=== PATIENT | female | born 1990 | race Caucasian/White ===

== ENCOUNTER 2019-02-19 16:01 | Emergency (ER) | payer MEDICAID, SELFPAY ==
[2019-02-19 16:02] VITALS: BP 141/75; PULSE 88; RESP 16; TEMP 36.4; O2SAT 98; BMI 32.4
--- NOTE | 2019-02-19 16:17 | US_ITS ---
STUDY: ABDOMINAL ULTRASOUND - RIGHT UPPER QUADRANT REASON FOR VISIT: Female, 29 years old. Elevated LFTs TECHNIQUE: Ultrasound evaluation of the right upper quadrant was performed with real-time and static alvarez-scale imaging. TECHNICAL QUALITY: Limited. Examination limited by bowel gas. COMPARISON: None. FINDINGS: Liver: The liver measures 19.5 cm. There is normal echogenicity of the liver. The bile ducts are within normal limits. There is hepatic color flow. The direction of portal flow is hepatopetal. There is no demonstrated mass lesion. Gallbladder: Normal distended gallbladder. The gallbladder wall measures 2 mm. There is a negative sonographic Bailey's sign. There is no pericholecystic fluid. There are no gallstones. Common Bile Duct (C.B.D.): The common bile duct measures 2 mm. Pancreas: Visualized pancreas is sonographically normal Right Kidney: Normal size of the right kidney. The right kidney measures 10.1 x 5.0 x 4.6 cm. Normal renal cortex. The right cortex measures 1.3 cm. There is no demonstrated renal mass or cyst. There is no right hydronephrosis. US/Gallbladder IMPRESSION: No suspicious sonographic findings Electronically Signed: Gene Worthington MD at 17:48 EDT , Service support ,
[2019-02-19] MEDS: 0.9% Normal Saline 1,000 ML 1000 ML IV (16:35)
[2019-02-19] MEDS: Ondansetron 4 MG/2 ML Vial IV (16:35)
[2019-02-19] MEDS: Ketorolac 30 MG/ML Syringe 15 MG IV (16:36)
--- NOTE | 2019-02-19 16:36 | ED.DCSUM_ITS ---
History of Present Illness Chief Complaint: Abd Pain Narrative: Patient presenting for evaluation secondary to abdominal pain. Patient reports that this morning she woke up with right upper quadrant abdominal pain. Is has been a continuous waxing and waning type pain not associated with any sort of fevers. Patient states that she has been having some loose stools over the course of the last couple of days. She endorses some nausea and anorexia but no vomiting. She is never had any prior similar episodes in the past. Pain is worse with palpation. Patient has a history of a tubal ligation in the past, no other abdominal surgeries. She denies any urinary signs or symptoms. Review of systems otherwise negative. Past Medical History - Allergies and Home Meds Allergies/Adverse Reactions: Allergies tramadol Adverse Reaction (Verified 02/19/19 16:05) Hives Primary Care Physician: Osiel Plummer MD [STAFF PHYSICIAN] - 3-5 Days Care Physician,No Primary [Primary Care Provider] - Review of Systems All systems negative except as indicated General: Denies: Fever Gastrointestinal: Reports: Abdominal pain, Nausea, Diarrhea. Denies: Vomiting Genitourinary: Denies: Dysuria, Hematuria, Frequency Physical Exam Vital Signs/Narrative: Vital Signs Temp Pulse Resp BP Pulse Ox 02/19/19 16:02 97.5 F L 88 16 141/75 H 98 General: Well nourished, Well developed, No Acute Distress Head: Normocephalic, Atraumatic Eyes: Perrl, EOMI. Negative for: Scleral icterus ENT: Moist mucous membranes, No rhinorrhea Neck: Supple, Nontender Cardiovascular: Regular rate, Regular rhythm, No murmurs Respiratory: No distress, CTA bilaterally, Chest nontender Abdomen: Soft, Nondistended, Tender - Right upper quadrant, Guarding, Bailey's sign Extremities: Nontender, No edema Skin: Normal color, No rash Neurological: Alert, Oriented x3, Cranial nerves II-XII grossly intact, Normal Strength, Normal Sensation Psychological: Normal affect, Normal Mood Diagnostic/Tx/Re-eval - Medical Decision Making Patient presented secondary to right upper quadrant abdominal pain. I was concerned for the possibility of gallbladder pathology. CBC CMP lipase and urinalysis were unremarkable. Right upper quadrant ultrasound was negative. Patient was initially given Toradol Zofran and liter of fluids, she had some improvement of her pain, but continues to have some pain. Patient was given a [place] in the emergency department. She will be sent home with a short course of Naprosyn for pain control, and strict return instructions. Patient was given primary care from the follow-up list. Patient was discharged in improved condition. Disposition: Home ED Disposition - Plan for ED Patient: Disposition: Home or Assisted Living Diagnosis: Right upper quadrant abdominal pain Instructions: ED Abdominal Pain Unkn Cause Prescriptions: Naproxen [Naprosyn] 500 mg PO BID PRN #20 tab Referrals: Care Physician,No Primary [Primary Care Provider] - Osiel Plummer MD [STAFF PHYSICIAN] - 3-5 Days
[2019-02-19 16:48] LABS: Absolute Lymphocyte Count 3.12 X10^3/ul (0.83-4.51); Absolute Neutrophil Count 5.5 X10^3/uL (2.0-7.7); Basophil# 0.03 X10^3/uL; Basophil% 0.3 % (0-1); Eosinophil# 0.21 X10^3/uL; Eosinophils% 2.2 % (0-5); Hematocrit 39.6 % (37-47); Hemoglobin 13.8 g/dl (12.0-15.0); Lymphocyte # 3.12 X10^3/ul (4.0); Lymphocyte % 32.6 % (19-41); Mean Corp Hgb Conc 34.8 g/gl (32-36); Mean Corpuscular Hgb 28.8 pg (27.0-32.0); Mean Corpuscular Volume 82.7 fL (81-99); Mean Platelet Vol. 10.4 fl (6.2-12.0); Monocyte# 0.73 X10^3/uL; Monocyte% 7.6 % (0-10); Neutrophil # 5.45 X10^3/uL (2.7-7.7); Neutrophil % 57.1 % (47-70); Platelet Count 160 K/mm3 (150-450); RBC Distribution Width CV 12.3 % (11.6-14.6); RBC Distribution Width SD 37.2 fl (35.1-43.9); Red Blood Count 4.79 M/mm3 (4.2-5.4); White Blood Count 9.6 K/mm3 (4.4-11.0)
[2019-02-19 16:48] LABS: Bacteria 0 SEEN /hpf (None Seen); Mucous, Urine 0 SEEN /hpf (<or=2+)
[2019-02-19 17:00] LABS: POSITIVE COUNT NO; POSITIVE DIFFERENTIAL NO; POSITIVE MORPHOLOGY NO
[2019-02-19 17:01] LABS: Internal QC Validated? YES +Cl - CLEAR BKGD; Pregnancy, Urine Negative Negative
[2019-02-19 17:06] LABS: Color, Urine Straw (Yellow); Glucose, Dipstick Normal (Normal); Ketone-Dipstick Negative (Negative); Leukocyte Esterase-Dipstick 25 /ul (Negative); Nitrite-Dipstick Negative (Negative); Occult Blood-Urine Negative /ul (Negative); Protein-Dipstick Negative (Negative); Specific Gravity, Urine 1.005 (1.002-1.030); Urine Bilirubin Dipstick Negative (Negative); Urine Clarity Clear (Clear); Urine Urobilinogen Normal (Normal)
[2019-02-19 17:09] LABS: Red Blood Cells-Urine 0 SEEN /hpf (0-5); Squamous Epithelial Cells - UA 0-5 SEEN /hpf (5-10); White Blood Cells 0-5 SEEN /hpf (0-5)
[2019-02-19 17:10] LABS: AST(SGOT) 22 U/L (15-37); Alanine Aminotransfer ALT/SGPT 29 U/L (13-56); Albumin, Serum 3.8 g/dL (3.2-5.0); Alkaline Phosphatase 89 U/L (45-117); Anion Gap 8 (5-15); BUN 7 mg/dL (7-18); BUN/Creat Ratio 8.8 RATIO (10-20); Calcium,Total 8.7 mg/dL (8.5-10.1); Chloride 105 mmol/L (98-107); Creatinine, Serum 0.79 mg/dL (0.55-1.02); EST Glomerular Filtration Rate 90 mL/min (>60); Est Glom Filt Rate - Afr Amer 109 mL/min (>60); Estimated Creatinine Clearance 85.35 ml/min; Globulin 3.7 g/dL (2.2-4.2); Glucose 82 mg/dL (74-106); Lipase 151 U/L (73-393); Potassium 3.6 mmol/L (3.5-5.1); Protein, Total 7.5 g/dL (6.4-8.2); Sodium Level 138 mmol/L (136-145)
[2019-02-19] MEDS: HYDROcodone Bitartrate/Apap 5/325 Tablet PO (18:18)
[2019-02-19 18:20] VITALS: BP 124/87; PULSE 79; RESP 19; O2SAT 99
== END 2019-02-19 18:22 | disposition home or self-care (01) ==
PROVIDERS: Emergency Provider Emergency Medicine
DX: R10.11 Right upper quadrant pain (principal)
CPT/HCPCS: 76705; 80053; 81001; 81025; 83690; 85025; 96361; 96374; 96375; 99284; J7030; A4216; J2405

== ENCOUNTER → 2020-08-13 13:09 | Outpatient (CLI) | payer MEDICAID, SELFPAY ==
[2020-08-13 11:28] VITALS: BMI 33.0
== END ==
PROVIDERS: Visit Provider Physician Assistant
DX: Z20.828 Contact with and (suspected) exposure to other viral communicable diseases (principal)
CPT/HCPCS: 87635; U0003

== ENCOUNTER → 2020-09-03 18:37 | Outpatient (CLI) | payer MEDICAID, SELFPAY ==
[2020-09-03 15:12] VITALS: BMI 33.0
== END ==
PROVIDERS: Referring Provider Physician Assistant; Visit Provider Physician Assistant
DX: Z03.818 Encounter for observation for suspected exposure to other biological agents ruled out (principal)
CPT/HCPCS: 87635; U0003

== ENCOUNTER 2021-06-01 10:04 | Emergency (ER) | payer MEDICAID, SELFPAY ==
[2021-06-01 10:04] VITALS: BP 149/88; PULSE 79; RESP 18; TEMP 36.4; O2SAT 94; BMI 34.7
[2021-06-01 10:05] VITALS: BP 149/88; PULSE 79; RESP 18; TEMP 36.4; O2SAT 94
--- NOTE | 2021-06-01 10:13 | EKG12_ITS ---
Test Reason : Blood Pressure : / mmHG Vent. Rate : 074 BPM Atrial Rate : 074 BPM P-R Int : 166 ms QRS Dur : 080 ms QT Int : 374 ms P-R-T Axes : 053 064 044 degrees QTc Int : 415 ms Normal sinus rhythm Normal ECG Confirmed by FAISAL DURÁN, KATHLEEN ([id number]), video news editor DONNA GUY ([id number]) on 06/03/2021 10:15:56 AM Referred By: [facility] Confirmed By:KATHLEEN MALONE MD
--- NOTE | 2021-06-01 10:15 | ED.VIS.DYS ---
HPI History of Present Illness Chief Complaint: Cold Sx Informant: patient Narrative Narrative: 31-year-old female presenting with cough, shortness of breath. She states this started 3 days ago. She does have sick contacts at home. She is not vaccinated for Covid. She did have Covid last summer. She denies fever. Denies vomiting or diarrhea. Denies abdominal pain. She complains of chest pain with cough. PE Risk Factors: Negative for Cancer, OCP + Smoking + > 35, Prior DVT or PE, Recent immobilization, Recent surgery and Recent travel Prior similar symptoms: Yes Recent Illness/Hospitalization: No PFSH PFSH Medical History (Updated 06/01/21 @ 11:[address] Shayna Rashid MD) Depressed Home Medications [id number] 1 tab PO Q4H PRN PRN 02/19/19 [History Last Taken Unknown] naproxen 500 mg PO BID PRN #20 tab 02/19/19 [Rx Last Taken Unknown] benzonatate [Tessalon Perles] 100 mg PO BID PRN #20 cap 06/01/21 [Rx Last Taken Unknown] Allergy/AdvReac Type Severity Reaction Status Date / Time amoxicillin Allergy Rash Verified 06/01/21 10:06 Penicillins Allergy Rash Verified 06/01/21 10:06 tramadol AdvReac Hives Verified 09/03/20 15:13 Social History (Updated 09/03/20 @ 16:07 by Sabino COTTON, PA) Smoking Status: Current every day smoker tobacco type: e-cigarettes ROS ROS ED Constitutional Constitutional ED: Denies fever(s) Eyes Eyes: Denies change in vision ENT ENT ED: Denies rhinorrhea or sore throat Cardiovascular Cardiovascular: Reports other Details: chest pain with coughing ; Denies palpitations Respiratory/Chest Respiratory/Chest: Reports cough and dyspnea; Denies sputum Gastrointestinal Gastrointestinal: Denies abdominal pain, diarrhea, nausea or vomiting Genitourinary Genitourinary ED: Denies dysuria Musculoskeletal Musculoskeletal: Denies myalgias Integumentary Denies rash Neurologic Neurologic: Reports headache(s) Psychiatric Psychiatric: Denies suicidal thoughts EXAM Physical Exam Const Vital Signs: 06/01/21 10:04 06/01/21 10:05 06/01/21 10:11 Temperature 97.6 F L 97.6 F L Temperature Source Temporal Temporal Pulse Rate 79 79 Respiratory Rate 18 18 Respiratory Effort Short of Breath Respiratory Depth Normal Respiratory Pattern Normal Blood Pressure 149/88 H 149/88 H Blood Pressure Mean 108 108 Pulse Ox 94 94 Oxygen Delivery Method Room Air Room Air 06/01/21 10:31 Temperature 97.6 F L Temperature Source Temporal Pulse Rate 71 Respiratory Rate 19 H Respiratory Effort Respiratory Depth Respiratory Pattern Blood Pressure 115/95 H Blood Pressure Mean 101 Pulse Ox 97 Oxygen Delivery Method Room Air Positive well nourished and well developed General Appearance ED: well developed HEENT Reports normocephalic and head/scalp atraumatic Eyes PERRL and EOMs intact bilaterally Neck supple and no meningeal signs General: Negative for tenderness Chest Wall inspection of chest normal Resp normal respiratory effort and clear to auscultation bilaterally Cardio regular rate and regular rhythm GI non-tender and non-distended Palpation: soft; Negative for guarding or rebound tenderness present no CVA tenderness Back/Spine normal to inspection Extremity normal to inspection Neuro oriented x3 Sensorium / Orientation: alert Psych mental status grossly normal Skin Rashes: no rashes MDM MDM MDM Narrative Medical decision making narrative: Pulse ox is 97% on room air. She is resting comfortably on reevaluation. EKG is normal sinus rhythm rate of 74 with no acute ischemic changes. Troponin and D-dimer are negative. Chest x-ray read by myself and radiology shows no acute process. Patient is advised to continue social distancing. She is given a prescription for Tessalon Perles. Advised return to ED for worsening complaints. Lab Data Attestation: I reviewed the patient's lab results. Labs: Laboratory Results - last 24 hr 06/01/21 06/01/21 06/01/21 10:21 10:21 10:21 WBC 7.4 RBC 4.77 Hgb 13.5 Hct 41.0 MCV 86.0 MCH 28.3 MCHC 32.9 RDW Std Deviation 38.7 RDW Coeff of Madie 12.3 Plt Count 217 MPV 9.7 Immature Gran % (Auto) 0.300 Neut % (Auto) 57.1 Lymph % (Auto) 32.2 Falls % (Auto) 6.9 Eos % (Auto) 2.7 Baso % (Auto) 0.8 Absolute Neuts (auto) 4.3 Absolute Lymphs (auto) 2.39 Nucleated RBC % 0 D-Dimer Quant (PE/DVT) 0.47 Sodium 140 Potassium 4.0 Chloride 107 Carbon Dioxide 26.0 Anion Gap 7 BUN 11 Creatinine 0.69 Estim Creat Clear Calc 91.72 Est GFR (MDRD) Af Amer 125 Est GFR (MDRD) Non-Af 104 BUN/Creatinine Ratio 15.9 Glucose 96 Calcium 9.3 Troponin I High Sens 4 Radiography Chest X-Ray - ED: 1 View, Read by ED Physician and Read by Radiologist Diagnostic Testing: Radiology Impression Chest X-Ray 06/01/21 10:38 IMPRESSION: Normal x-ray examination of the chest. Electronically Signed: Fawad Bower MD at 11:10 EDT , Service support , EKG Initial EKG: Attestation: I personally reviewed and interpreted this EKG as follows: Interpretation: Sinus Rhythm and No Acute Injury Pattern Discharge Plan Triage Chief Complaint: Cold Sx ED Provider: Shayna Rashid Dx/Rx/DC Orders Clinical Impression: Acute viral syndrome Instructions: ED Viral Syndrome (Adult) Prescriptions: New benzonatate [Tessalon Perles] 100 mg capsule 100 mg PO BID PRN (Reason: cough) Qty: 20 RF: 0 No Action naproxen 500 MG tablet 500 mg PO BID PRN Qty: 20 RF: 0 vsjtyvjwjs-cecjflhobznnv-lbum 1 TABLET tablet 1 tab PO Q4H PRN PRN (Reason: Headache) RF: 0 Primary Care Provider: Care Physician,No Primary Referrals: Usman Rocha MD [NON-STAFF] - Care Physician,No Primary [Primary Care Provider] - Disposition Disposition: Home, Self Care
[2021-06-01 10:31] VITALS: BP 115/95; PULSE 71; RESP 19; TEMP 36.4; O2SAT 97
[2021-06-01 10:38] LABS: Absolute Lymphocyte Count 2.39 X10^3/uL (0.83-4.51); Absolute Neutrophil Count 4.3 X10^3/uL (2.0-7.7); Basophil# 0.06 X10^3/uL; Basophil% 0.8 % (0-1); Eosinophils% 2.7 % (0-5); Hemoglobin 13.5 g/dL (12.0-15.0); Lymphocyte # 2.39 X10^3/ul (0.83-4.51); Lymphocyte % 32.2 % (19-41); Mean Corp Hgb Conc 32.9 g/dL (32-36); Mean Corpuscular Hgb 28.3 pg (27.0-32.0); Mean Platelet Vol. 9.7 fl (6.2-12.0); Monocyte# 0.51 X10^3/uL; Monocyte% 6.9 % (0-10); NRBC Flagged by Analyzer 0 % (0-5); Neutrophil # 4.25 X10^3/uL (2.7-7.7); Neutrophil % 57.1 % (47-70); Platelet Count 217 K/mm3 (150-450); RBC Distribution Width CV 12.3 % (11.6-14.6); RBC Distribution Width SD 38.7 fl (35.1-43.9); Red Blood Count 4.77 M/mm3 (4.2-5.4); White Blood Count 7.4 K/mm3 (4.4-11.0)
--- NOTE | 2021-06-01 10:38 | RAD_ITS ---
STUDY: X-RAY CHEST REASON FOR EXAM: Female, 31 years old. Cough, shortness of breath and chest tightness. TECHNIQUE: Single AP portable view of the chest. COMPARISON: None. FINDINGS: EKG electrodes are seen. The lungs are clear and expanded. There is no demonstrated pleural abnormality. Normal size heart. Normal mediastinum and romi. Normal visualized pulmonary arteries. Normal visualized aortic arch and descending thoracic aorta. Normal visualized thoracic spine. Normal visualized ribs, clavicles, and shoulders. There is no demonstrated abnormality of the visualized soft tissue structures of the upper abdomen. RAD/Chest 1 View (Portable) IMPRESSION: Normal x-ray examination of the chest. Electronically Signed: Fawad Bower MD at 11:10 EDT , Service support ,
[2021-06-01 10:50] LABS: D-Dimer Quantitative (DVT/PE) 0.47 FEU/ug/m (0.27-0.49)
[2021-06-01 10:57] LABS: Anion Gap 7 (5-15); BUN 11 mg/dL (7-18); BUN/Creat Ratio 15.9 RATIO (10-20); Calcium,Total 9.3 mg/dL (8.5-10.1); Chloride 107 mmol/L (98-107); Creatinine, Serum 0.69 mg/dL (0.55-1.02); EST Glomerular Filtration Rate 104 mL/min (>60); Est Glom Filt Rate - Afr Amer 125 mL/min (>60); Estimated Creatinine Clearance 91.72 ml/min; Glucose 96 mg/dL (74-106); Sodium Level 140 mmol/L (136-145); Troponin-I HS 4 pg/mL (3.0-54.0)
[2021-06-01 11:38] VITALS: BP 97/72; PULSE 81; RESP 18; O2SAT 96; O2SAT 97
== END 2021-06-01 11:38 | disposition home or self-care (01) ==
PROVIDERS: Emergency Provider Emergency Medicine
DX: B34.9 Viral infection, unspecified (principal); F17.290 Nicotine dependence, other tobacco product, uncomplicated; Z86.16 Personal history of COVID-19
CPT/HCPCS: 71045; 80048; 84484; 85025; 85379; 87426; 93005; 99285; A4216

== ENCOUNTER → 2021-06-12 12:10 | Outpatient (CLI) | payer MEDICAID, SELFPAY | PROVIDERS: Referring Provider Physician Assistant Surgical; Visit Provider Physician Assistant Surgical | DX: R09.81 Nasal congestion (principal) | CPT/HCPCS: 87635; U0005; U0003 ==

== ENCOUNTER → 2021-07-07 10:30 | Outpatient (CLI) | payer MEDICAID, SELFPAY | PROVIDERS: Referring Provider Physician Assistant Surgical; Visit Provider Physician Assistant Surgical | DX: Z11.52 Encounter for screening for COVID-19 (principal) | CPT/HCPCS: 87635; U0005; U0003 ==

== ENCOUNTER 2021-08-11 09:28 | Outpatient (CLI) | payer MEDICAID, SELFPAY ==
[2021-08-11] MEDS: 0.9% Saline Lock 10 ML Syringe IV (09:47)
[2021-08-11 09:49] VITALS: BP 119/83; PULSE 82; RESP 16; TEMP 36.5; O2SAT 99; BMI 37.3
[2021-08-11 10:24] VITALS: BP 112/72; PULSE 79; RESP 16; TEMP 36.7; O2SAT 98
[2021-08-11 11:09] VITALS: BP 103/79; PULSE 71; RESP 16; TEMP 36.4; O2SAT 98
== END 2021-08-11 11:22 | disposition home or self-care (01) ==
LOC: MS3OUT 09:28 → MS3 09:29
PROVIDERS: Referring Provider Nurse Practitioner Adult Health; Visit Provider Nurse Practitioner Adult Health
DX: Z23 Encounter for immunization (principal); U07.1 COVID-19
CPT/HCPCS: J7050; M0245; Q0245; A4216

== ENCOUNTER → 2022-02-26 | Outpatient (CLI) | payer MEDICAID, SELFPAY ==
[2022-02-26 12:21] LABS: Mucous, Urine 0 SEEN /hpf (<or=2+); Red Blood Cells-Urine 0 SEEN /hpf (0-5); White Blood Cells 0 SEEN /hpf (0-5)
[2022-02-26 12:27] LABS: Color, Urine Yellow (Yellow); Glucose, Dipstick Normal (Normal); Ketone-Dipstick Negative (Negative); Leukocyte Esterase-Dipstick Negative /ul (Negative); Nitrite-Dipstick Negative (Negative); Occult Blood-Urine Negative /ul (Negative); Protein-Dipstick Negative (Negative); Urine Bilirubin Dipstick Negative (Negative); Urine Clarity Sl. Cloudy (Clear); Urine Urobilinogen Normal (Normal)
[2022-02-26 12:35] LABS: Bacteria 1+ /hpf (None Seen); Squamous Epithelial Cells - UA 5-10 SEEN /hpf (5-10)
== END | disposition home or self-care (01) ==
LOC: LAB 12:09
PROVIDERS: Visit Provider Physician Assistant Surgical
DX: N39.0 Urinary tract infection, site not specified (principal)
CPT/HCPCS: 81001; 87086; 87088

== ENCOUNTER 2022-03-23 16:32 | Emergency (ER) | payer MEDICAID, SELFPAY ==
[2022-03-23 16:33] VITALS: BP 128/86; PULSE 79; RESP 17; TEMP 36.6; O2SAT 99; BMI 35.6
[2022-03-23 17:41] VITALS: BP 128/86; PULSE 91; RESP 16; TEMP 36.6; O2SAT 99
--- NOTE | 2022-03-23 17:52 | RAD_ITS ---
STUDY: X-RAY CHEST REASON FOR EXAM: Female, 32 years old. CHEST PAIN cough TECHNIQUE: XR Chest 1 View COMPARISON: None FINDINGS: There is no demonstrated pleural abnormality. Normal size heart. Normal mediastinum and romi. Normal visualized pulmonary arteries. Normal visualized aortic arch and descending thoracic aorta. Normal visualized thoracic spine. Normal visualized ribs, clavicles, and shoulders. There is no demonstrated abnormality of the visualized soft tissue structures of the upper abdomen. RAD/Chest 1 View (Portable) IMPRESSION: There are no acute findings. Electronically Signed: Tigre Miller MD at 18:06 EDT ,
--- NOTE | 2022-03-23 18:04 | EX.ED.VIS.UR ---
HPI HPI - URI History of Present Illness Chief Complaint: Cough Narrative Narrative: 32-year-old female presenting with cough, rhinorrhea, generalized malaise. She denies fever, chills, body aches. She states he is a little bit short of breath. She does not believe she has been around anybody ill. No abdominal pain, nausea, vomiting. No or GI complaints. She has not taken any medications prior to coming to the emergency room. ROS ROS ED Constitutional Constitutional ED: Denies chills or fever(s) Eyes Eyes: Denies change in vision or diplopia ENT ENT ED: Reports rhinorrhea Cardiovascular Cardiovascular: Denies chest pain or palpitations Respiratory/Chest Respiratory/Chest: Reports cough and dyspnea Gastrointestinal Gastrointestinal: Denies abdominal pain, constipation, diarrhea, melena or nausea Genitourinary Genitourinary ED: Denies dysuria or hematuria Musculoskeletal Musculoskeletal: Denies arthralgias or back pain Integumentary Denies abscess Neurologic Neurologic: Denies headache(s) or paresthesias Psychiatric Psychiatric: Denies anxiety or depression PFSH PFS Medical History Depressed HTN (hypertension) Home Medications lisinopril 2.5 mg tablet 2.5 mg PO DAILY 08/11/21 [History Last Taken Unknown] fluconazole 150 mg tablet (Diflucan) 150 mg PO Q3D 2 doses #2 tabs 02/26/22 [Rx Last Taken Unknown] Allergy/AdvReac Type Severity Reaction Status Date / Time amoxicillin Allergy Rash Verified 03/23/22 16:36 Penicillins Allergy Rash Verified 03/23/22 16:36 tramadol AdvReac Hives Verified 03/23/22 16:36 Social History Smoking Status: Current every day smoker tobacco type: e-cigarettes EXAM Physical Exam Const Vital Signs: 03/23/22 16:33 03/23/22 17:41 03/23/22 17:41 Temperature 97.9 F 97.9 F Temperature Source Temporal Temporal Pulse Rate 79 91 Respiratory Rate 17 16 Respiratory Effort Normal Non-Labored Respiratory Depth Normal Respiratory Pattern Normal Blood Pressure 128/86 H 128/86 H Blood Pressure Mean 100 100 Pulse Ox 99 99 Oxygen Delivery Method Room Air Room Air Room Air Positive well nourished General Appearance ED: NAD; Negative for pallor HEENT Reports moist mucous membranes normocephalic Throat: posterior oropharynx normal Eyes PERRL and EOMs intact bilaterally Neck no lymphadenopathy Resp normal respiratory effort Auscultation: Negative for rales, rhonchi or wheezes GI non-tender Neuro oriented x3 and CN's II-XII intact bilaterally Sensorium / Orientation: alert Psych mental status grossly normal Skin General Skin Exam: Negative for jaundice or pallor MDM MDM MDM Narrative Medical decision making narrative: Patient presenting with cough and rhinorrhea. She really is not very sick. Vital signs are stable and she is afebrile. Affect and mood I obtained a COVID test which is negative. Chest x-ray my interpretation shows no acute cardiopulmonary process and the radiologist does agree. Patient discharged home with return precautions. OTC Tylenol and ibuprofen for pain or fever. She is given a work note. Impression: 1 viral syndrome Lab Data Attestation: I reviewed the patient's lab results. Radiography Diagnostic Testing: Clinical Impression(s) from Imaging Studies Chest X-Ray 03/23/22 17:52 IMPRESSION: There are no acute findings. Electronically Signed: Tigre Miller MD at 18:06 EDT Reading Location ID and State: [facility] / [place] , Service support , Discharge Plan Triage Chief Complaint: Cough ED Provider: Rian Rivas Dx/Rx/DC Orders Instructions: ED Viral Syndrome (Adult) Prescriptions: No Action fluconazole [Diflucan] 150 mg tablet 150 mg PO Q3D Qty: 2 0RF Rx Instructions: may repeat second dose 72 hrs after first dose if symptoms persist lisinopril 2.5 mg tablet 2.5 mg PO DAILY Stand Alone Forms: ED Work / School Excuse Primary Care Provider: Care Physician,No Primary Referrals: Care Physician,No Primary [Primary Care Provider] - Disposition Disposition: Home, Self Care Discharge Date/Time: 03/23/22 18:36
== END 2022-03-23 18:36 | disposition home or self-care (01) ==
PROVIDERS: Emergency Provider Student in an Organized Health Care Education/Training Program; Visit Provider Student in an Organized Health Care Education/Training Program
DX: B34.9 Viral infection, unspecified (principal); F17.290 Nicotine dependence, other tobacco product, uncomplicated
CPT/HCPCS: 71045; 87811; 99282

== ENCOUNTER → 2023-04-18 | Outpatient (CLI) | payer MEDICAID, SELFPAY ==
[2023-04-18 17:49] LABS: Absolute Lymphocyte Count 3.14 X10^3/uL (0.83-4.51); Absolute Neutrophil Count 4.7 X10^3/uL (2.0-7.7); Basophil# 0.06 X10^3/uL; Basophil% 0.7 % (0-1); Eosinophil# 0.15 X10^3/uL; Eosinophils% 1.7 % (0-5); Hematocrit 39.8 % (37-47); Hemoglobin 13.1 g/dL (12.0-15.0); Lymphocyte # 3.14 X10^3/ul (0.83-4.51); Lymphocyte % 35.9 % (19-41); Mean Corp Hgb Conc 32.9 g/dL (32-36); Mean Platelet Vol. 10.5 fl (6.2-12.0); Monocyte# 0.65 X10^3/uL; Monocyte% 7.4 % (0-10); NRBC Flagged by Analyzer 0 % (0-5); Neutrophil # 4.73 X10^3/uL (2.7-7.7); Neutrophil % 54.1 % (47-70); Platelet Count 250 K/mm3 (150-450); RBC Distribution Width CV 12.7 % (11.6-14.6); RBC Distribution Width SD 39.2 fl (35.1-43.9); Red Blood Count 4.68 M/mm3 (4.2-5.4); White Blood Count 8.8 K/mm3 (4.4-11.0)
== END | disposition home or self-care (01) ==
LOC: MTLAB 16:37
PROVIDERS: PCP Family Medicine; Referring Provider Physician Assistant; Visit Provider Physician Assistant
DX: R53.83 Other fatigue (principal)
CPT/HCPCS: 36415; 85025